=== PATIENT | female | born 2000 | race Hispanic/Latino ===

== ENCOUNTER 2024-10-22 14:31 | Emergency (ER) | payer SELFPAY ==
[~2024-10-22] VITALS: Ht 152.4 cm; Wt 50.9 kg
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
[2024-10-22 16:04] VITALS: TEMP 98
[2024-10-22 16:09] LABS: APPEARANCE,URINE CLOUDY (CLEAR); BILIRUBIN,URINE NEGATIVE (NEGATIVE); COLOR,URINE LIGHT-YELLOW (YELLOW); GLUCOSE, URINE (UA) NEGATIVE (NEGATIVE); KETONES,URINE NEGATIVE (NEGATIVE); LEUKOCYTE ESTERASE ,URINE 250 Leu/uL (NEGATIVE); NITRATE,URINE NEGATIVE (NEGATIVE); OCCULT BLOOD,URINE SMALL (NEGATIVE); PH,URINE 6.5 (5.0-8.0); PROTEIN,URINE NEGATIVE (NEGATIVE); UROBILINOGEN,URINE 0.2 mg/dL (0.2-1.0)
[2024-10-22 16:10] LABS: HCG,QUALITATIVE URINE POSITIVE (NEGATIVE)
[2024-10-22 16:11] LABS: ADD UA MICROSCOPIC YES
[2024-10-22 16:15] LABS: BACTERIA,URINE RARE /HPF (None Seen); MUCUS,URINE RARE LPF (None Seen); SQUAMOUS EPITHELIAL CELL,UR MANY /HPF (0-2)
[2024-10-22 17:34] VITALS: BP 107/62; PULSE 71; RESP 18; O2SAT 96
--- NOTE | 2024-10-22 17:35 | HMCIMG ---
US OB <14 WEEKS HISTORY: Abdominal pain COMPARISON: None TECHNIQUE: Obstetrical ultrasound study was performed. FINDINGS: The uterus measures 9.1 x 5.7 x 6.7 centimeter. Right ovary is not visualized. Left ovary measures 2.1 x 1.8 x 1.6 centimeter. There is single intrauterine gestation with estimated gestational age of 8 weeks and 6 days. heart rate is 161 beats per minute. No fluid is seen in the cul-de-sac. IMPRESSION: 1. There is single intrauterine gestation with estimated gestational age of 8 weeks and 6 days. heart rate is 161 beats per minute.
[2024-10-22] MEDS ORDERED: CEPH500B PO (17:41)
== END 2024-10-22 17:54 | disposition home or self-care (01) ==
LOC: EDH 14:31
DX: O23.41 Unspecified infection of urinary tract in pregnancy, first trimester (principal); N39.0 Urinary tract infection, site not specified; Z3A.08 8 weeks gestation of pregnancy
CPT/HCPCS: 36415; 76801; 81001; 81025; 84703; 86850; 86900; 86901; 87086; 99284